=== PATIENT | male | born 1965 | race Two or more races ===

== ENCOUNTER 2021-06-02 20:11 | Emergency (ER) | payer MEDICAID ==
[~2021-06-02] VITALS: Ht 162.6 cm; Wt 66.7 kg
--- NOTE | 2021-06-02 20:25 | NUR ---
PT BIB [facility] FROM HOME CALLED PARAMEDICS STATING THAT HE SUSPECTING PT WAS TAKING DRUGS. PT A/O X3, NO SOB OR LABORED BREATHING, AFEBRILE. CLEAR SPEECH, COMPLETE SENTENCES.
--- NOTE | 2021-06-02 20:55 | NUR ---
DR. HANSON AT BEDSIDE, MSE IN PROGRESS.
[2021-06-02] MEDS ORDERED: levETIRAcetam 250 MG TABLET PO ONE (21:15)
[2021-06-02] MEDS ORDERED: PROCHLORPERAZINE MALEATE 5 MG TABLET PO ONE (21:15)
[2021-06-02] MEDS ORDERED: levETIRAcetam 250 MG TABLET ONE (21:18)
[2021-06-02] MEDS ORDERED: PROCHLORPERAZINE MALEATE 5 MG TABLET ONE (21:18)
[2021-06-02 21:27] LABS: HEMATOCRIT 37.1 % (36.7-47.1); MEAN CORPUSCULAR HEMOGLOBIN 26.2 uug (23.8-33.4); MEAN CORPUSCULAR VOLUME 79.9 fL (73.0-96.2); PLATELET COUNT (AUTO) 244 K/uL (152-348)
[2021-06-02 21:29] LABS: CARBON DIOXIDE 23 mmol/L (21-32); CHLORIDE 103 mmol/L (98-107); CREATININE 1.3 mg/dL (0.6-1.3); GLUCOSE 97 mg/dL (74-106); UREA NITROGEN, BLOOD 10 mg/dL (7-18)
[2021-06-02 21:35] LABS: ALANINE AMINOTRANSFERASE 19 U/L (16-63); ALKALINE PHOSPHATASE 104 U/L (50-136); ASPARTATE AMINOTRANSFERASE 16 U/L (15-37); BILIRUBIN,DIRECT 0.1 mg/dL (0.0-0.2); BILIRUBIN,TOTAL 0.3 mg/dL (0.2-1.0); TOTAL PROTEIN, SERUM 8.1 g/dL (6.4-8.2)
[2021-06-02 21:36] LABS: ETHANOL < 3 MG/DL (0-0)
--- NOTE | 2021-06-02 22:49 | NUR ---
Patient is resting comfortably in bed with eyes closed.
--- NOTE | 2021-06-02 23:26 | NUR ---
PT ABLE TO USE URINAL, NO ODOR NOTED, CLEAR GAURI. DENIES ANY PAIN/DISCOMFORT. NOW NOTED TO BE RESTING COMFORTABLY. EYES CLOSED.
[2021-06-02 23:43] LABS: *BILIRUBIN,URIN NEGATIVE (NEGATIVE); *BLOOD, URINE NEGATIVE (NEGATIVE); *CLARITY,URINE CLEAR (CLEAR); *COLOR,URINE YELLOW (YELLOW); *KETONES,URINE TRACE (NEGATIVE); LEUKOCYTE ESTERASE ,URINE NEGATIVE (NEGATIVE); NITRITE, URINE NEGATIVE (NEGATIVE); UGLUCOSE NEGATIVE (NEGATIVE)
[2021-06-02 23:50] LABS: BACTERIA,URINE NONE SEEN /HPF (NONE SEEN); RBC,URINE 0-3 /HPF (0-3); SQUAMOUS EPITHELIAL CELL,UR NONE SEEN /HPF (NONE SEEN); WBC,URINE 0-3 /HPF (0-3)
[2021-06-02 23:57] LABS: *AMPHETAMINE, URINE POSITIVE (NEGATIVE); *CANNABINOID, URINE NEGATIVE (NEGATIVE); *COCCAINE, URINE NEGATIVE (NEGATIVE); *OPIATE, URINE NEGATIVE (NEGATIVE); *PHENCYCLIDINE SCREEN,URINE NEGATIVE (NEGATIVE)
--- NOTE | 2021-06-03 00:09 | NUR ---
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
--- NOTE | 2021-06-03 01:31 | NUR ---
Patient is resting comfortably in bed with eyes closed.
--- NOTE | 2021-06-03 03:46 | NUR ---
PT NOTED TO BE ASLEEP, BREATHING EVEN AND UNLABORED, VITALS STABLE.
--- NOTE | 2021-06-03 05:23 | NUR ---
OFFERED PT FLUIDS, DENIES ANY PAIN/DISCOMFORT.
--- NOTE | 2021-06-03 07:08 | NUR ---
PT RESTING COMFORTABLY IN BED, EYES CLOSED, BREATHING EVEN AND UNLABORED.
--- NOTE | 2021-06-03 07:51 | NUR ---
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 Patient was given written and verbal discharge instructions. Patient verbalized understanding and compliance of instructions. Patient is ambulatory with steady gait. Patient refused offer of half-way placement. Patient was given list of available shelters in surrounding area. Telephone use was provided to patient. Patient said that he wants to go to [facility] [address]. Security assistance was requested to escort this patient out of ER.
--- NOTE | 2021-06-03 07:55 | NUR ---
Patient denies being homeless. multimedia services manager was still provided.
== END 2021-06-03 07:56 | disposition home or self-care (01) ==
LOC: ER 20:15
DX: F15.10 Other stimulant abuse, uncomplicated (principal); R00.0 Tachycardia, unspecified; I49.3 Ventricular premature depolarization; G40.909 Epilepsy, unspecified, not intractable, without status epilepticus; Z59.00 Homelessness unspecified
CPT/HCPCS: 36415; 70450; 80048; 80076; 80307; 80320; 81001; 85025; 93005; 99285; J8499; A4663; G0480